=== PATIENT | male | born 1960 | race African-American/Black ===

== ENCOUNTER 2021-07-11 08:42 | Emergency (ER) | payer OTHER ==
[~2021-07-11] VITALS: Ht 190.5 cm; Wt 127.5 kg
[2021-07-11 08:55] VITALS: BP 160/94
--- NOTE | 2021-07-11 08:57 | NUR ---
AT BEDSIDE FOR EVAL.
[2021-07-11] MEDS ORDERED: ACETAMINOPHEN ES 500 MG TABLET ONE (09:07)
[2021-07-11] MEDS ORDERED: CYCLOBENZAPRINE 10 MG TABLET ONE (09:07)
--- NOTE | 2021-07-11 09:10 | NUR ---
COLOR DIPPER AT BEDSIDE FOR DUPLEX SCAN.
--- NOTE | 2021-07-11 09:16 | NUR ---
CUTTER IN AT BEDSIDE FOR XRAY.
[2021-07-11] MEDS ORDERED: ACETAMINOPHEN ES 500 MG TABLET PO ONE (09:30)
[2021-07-11] MEDS ORDERED: CYCLOBENZAPRINE 10 MG TABLET PO ONE (09:30)
--- NOTE | 2021-07-11 10:19 | NUR ---
PT AGITATED C/O OTHER PATIENTS NOISE. DOES NOT WANT TO WAIT FOR IMAGING RESULT. LEFT W/OUT ACI AND IMAGING RESULT.
== END 2021-07-11 10:21 | disposition left against medical advice (07) ==
LOC: ER 08:42
DX: M79.604 Pain in right leg (principal); I11.0 Hypertensive heart disease with heart failure; I50.9 Heart failure, unspecified; E78.5 Hyperlipidemia, unspecified; E11.9 Type 2 diabetes mellitus without complications; Z86.718 Personal history of other venous thrombosis and embolism
CPT/HCPCS: 73552; 93971-TC